=== PATIENT | male | born 1955 | race Caucasian/White ===

== ENCOUNTER 2018-01-17 07:50 | Day surgery (SDC) | payer MEDICAID ==
[2018-01-17] MEDS ORDERED: Sodium Chloride 0.9% 1,000 ML IV SCH (08:30)
[2018-01-17] MEDS ORDERED: Midazolam 1 MG/ML 2 ML SDV ONE (09:01)
[2018-01-17] MEDS ORDERED: fentaNYL 100 MCG/2 ML SDV ONE (09:01)
[2018-01-17] MEDS ORDERED: Propofol 200 MG/20 ML SDV ONE ×2 (09:01→09:54)
[2018-01-17 11:52] VITALS: BP 118/74
--- NOTE | 2018-01-17 15:27 | OR ---
DATE OF PROCEDURE: 01/17/2018 PROCEDURE: 1. EGD. 2. Colonoscopy. FINDINGS: 1. Erosive esophagitis. 2. Inflammation consistent with reflux disease. 3. Hiatal hernia. 4. Descending colon polyp, approximately 3-4 mm, completely removed using cold biopsy forceps. 5. Diverticulosis, moderate, mostly concentrated at the sigmoid colon. COMPLICATIONS: None. ROTATING EQUIPMENT SPECIALIST: None. PREOPERATIVE DIAGNOSIS: Epigastric pain and screening colonoscopy. POSTOPERATIVE DIAGNOSIS: Epigastric pain and screening colonoscopy. CONSENT: Risks, benefits, alternatives, and limitations including, but not limited to infection, bleeding, and perforation were explained, and the patient wished to proceed. PROCEDURE IN DETAIL: The patient was placed in the left lateral decubitus position. The EGD scope was introduced and advanced atraumatically to the 2nd part of the duodenum. On retroflexion, there were no gastric ulcerations or ulcerations in the duodenum. At the GE junction, there was a hiatal hernia, probably moderate in size. The GE junction itself showed areas of ulceration, most consistent with healing esophageal ulceration. This was biopsied in proximity in all 4 quadrants. The midesophagus was normal. A digital rectal exam was performed next. The scope was introduced, and the patient had significant amount of tortuosity noted in his colon. Diverticulosis described as moderate and concentrated in the sigmoid colon. No evidence of diverticulitis or active bleeding. As the scope was advanced to the ileocecal valve, a photo was taken. As the scope was brought back through, a very small polyp in the descending colon was identified and completely removed. No other abnormalities noted. The prep was marginal. On retroflex, there were no abnormalities. The patient tolerated the procedure well. Gio Purvis MD /[id number]
== END 2018-01-17 11:45 | disposition home or self-care (01) ==
LOC: JP.SDS 07:50
PROVIDERS: ATTEND Surgery
DX: Z12.11 Encounter for screening for malignant neoplasm of colon (principal); K63.5 Polyp of colon; K57.30 Diverticulosis of large intestine without perforation or abscess without bleeding; K22.10 Ulcer of esophagus without bleeding; K44.9 Diaphragmatic hernia without obstruction or gangrene; I25.10 Atherosclerotic heart disease of native coronary artery without angina pectoris; Z87.891 Personal history of nicotine dependence; Z88.2 Allergy status to sulfonamides
CPT/HCPCS: 43239; 45380; J2250; J2704; J3010; J7030; 88305

== ENCOUNTER → 2021-11-30 | Day surgery (SDC) | payer MEDICARE, BC ==
[~2021-11-30] MED LIST: Bupivacaine 0.5% 30 ML SDV ONE; Dexamethasone 4 MG/ML SDV ONE; Glycopyrrolate 0.2 MG/ML 5 ML MDV ONE; Lactated Ringers 1,000 ML IV SCH; Neostigmine Methylsulfate 1 MG/ML 5 ML Syringe ONE; Ondansetron 4 MG/2 ML SDV ONE; Propofol 200 MG/20 ML SDV ONE; Rocuronium 50 MG/5 ML Vial ONE; Succinylcholine 200 MG/10 ML MDV ONE; ceFAZolin 1 GM in Premix Bag 1 BAG IV ONE; ceFAZolin 1 GM in Sodium Chloride 0.9% 50 ML IV ONE; fentaNYL 100 MCG/2 ML SDV ONE; fentaNYL 250 MCG/5 ML SDV ONE
[2021-11-30 20:26] VITALS: BP 109/81; PULSE 75
== END ==
LOC: JP.ED 15:46 → JP.SDS 18:00
PROVIDERS: ATTEND Specialist
DX: S82.842A Displaced bimalleolar fracture of left lower leg, initial encounter for closed fracture (principal); S82.402A Unspecified fracture of shaft of left fibula, initial encounter for closed fracture; S82.52XA Displaced fracture of medial malleolus of left tibia, initial encounter for closed fracture; I10 Essential (primary) hypertension; E78.00 Pure hypercholesterolemia, unspecified; K21.9 Gastro-esophageal reflux disease without esophagitis; M19.90 Unspecified osteoarthritis, unspecified site; I25.2 Old myocardial infarction; Z98.890 Other specified postprocedural states; Z88.2 Allergy status to sulfonamides; Z95.5 Presence of coronary angioplasty implant and graft; Z87.891 Personal history of nicotine dependence; Z79.810 Long term (current) use of selective estrogen receptor modulators (SERMs); Z79.83 Long term (current) use of bisphosphonates; Z79.899 Other long term (current) drug therapy; X58.XXXA Exposure to other specified factors, initial encounter
CPT/HCPCS: 27814; 36415; 73610; 76000; 80048; 85027; 96365; 99283; C1713; J0330; J0690; J1100; J2405; J2704; J3010; J3490; J7120; U0002; 99281; J2710

== ENCOUNTER 2021-12-06 07:55 | Emergency (ER) | payer MEDICARE, BC ==
[2021-12-06 08:12] VITALS: BP 111/78; PULSE 119
== END 2021-12-06 10:08 | disposition home or self-care (01) ==
LOC: JP.ED 07:55
DX: S82.842A Displaced bimalleolar fracture of left lower leg, initial encounter for closed fracture (principal); K59.03 Drug induced constipation; T50.905A Adverse effect of unspecified drugs, medicaments and biological substances, initial encounter; F41.9 Anxiety disorder, unspecified; K21.9 Gastro-esophageal reflux disease without esophagitis; E78.00 Pure hypercholesterolemia, unspecified; I10 Essential (primary) hypertension; I25.2 Old myocardial infarction; Z95.5 Presence of coronary angioplasty implant and graft; Z79.899 Other long term (current) drug therapy
CPT/HCPCS: 99283

== ENCOUNTER 2022-07-27 07:46 | Day surgery (SDC) | payer MEDICARE, BC ==
[~2022-07-27 07:46] MED LIST changes: -Bupivacaine 0.5% 30 ML SDV ONE; -Dexamethasone 4 MG/ML SDV ONE; -Glycopyrrolate 0.2 MG/ML 5 ML MDV ONE; -Lactated Ringers 1,000 ML IV SCH; -Neostigmine Methylsulfate 1 MG/ML 5 ML Syringe ONE; -Ondansetron 4 MG/2 ML SDV ONE; -Rocuronium 50 MG/5 ML Vial ONE; -Succinylcholine 200 MG/10 ML MDV ONE; -ceFAZolin 1 GM in Premix Bag 1 BAG IV ONE; -ceFAZolin 1 GM in Sodium Chloride 0.9% 50 ML IV ONE; -fentaNYL 250 MCG/5 ML SDV ONE
[2022-07-27] MEDS ORDERED: Sodium Chloride 0.9% 1,000 ML IV SCH (08:30)
[2022-07-27 11:14] VITALS: BP 130/85; PULSE 54
== END 2022-07-27 11:18 | disposition home or self-care (01) ==
LOC: JP.SDS 07:46
PROVIDERS: ATTEND Surgery
DX: K22.70 Barrett's esophagus without dysplasia (principal); K31.A0 Gastric intestinal metaplasia, unspecified; K44.9 Diaphragmatic hernia without obstruction or gangrene; K22.89 Other specified disease of esophagus; K21.9 Gastro-esophageal reflux disease without esophagitis; I25.10 Atherosclerotic heart disease of native coronary artery without angina pectoris; Z95.818 Presence of other cardiac implants and grafts; Z88.2 Allergy status to sulfonamides
CPT/HCPCS: 43239; 88305; J2704; J3010; J7030

== ENCOUNTER 2022-11-20 06:22 | Day surgery (SDC) | payer MEDICARE, BC ==
[2022-11-20 06:44] LABS: HEMATOCRIT 45.1 % (38.4-49.7); HEMOGLOBIN 15.3 g/dL (12.9-16.9); MEAN CORPUSCULAR HEMOGLOBIN 30.5 pg (31.6-35.5); MEAN CORPUSCULAR HGB CONC 33.9 g/dL (31.6-35.5); RED BLOOD CELL COUNT 5.01 M/uL (4.14-5.76); WHITE BLOOD CELL COUNT,WBC 4.5 K/uL (3.2-11.0)
[2022-11-20] MEDS ORDERED: Lidocaine 0.5% 50 ML SDV ONE (06:47)
[2022-11-20] MEDS ORDERED: Bupivacaine 0.5% 30 ML SDV ONE (06:47)
[2022-11-20] MEDS ORDERED: Nozin Nasal Sanitizer NASBOTH ONE (06:57)
[2022-11-20] MEDS ORDERED: Lactated Ringers 1,000 ML IV SCH (07:00)
[2022-11-20 07:04] LABS: ALANINE AMINOTRANSFERASE,ALT 41 U/L (12-78); ALBUMIN 3.5 g/dL (3.4-5.0); ALKALINE PHOSPHATASE 58 U/L (46-116); ANION GAP 5.8 mmol/L (5.0-14.0); ASPARTATE AMNIOTRANSFERASE,AST 41 U/L (15-37); BILIRUBIN TOTAL 0.3 mg/dL (0.2-1.0); BLOOD UREA NITROGEN,BUN 23 mg/dL (7-18); CALCIUM 8.7 mg/dL (8.5-10.1); CARBON DIOXIDE,CO2 30 mmol/L (21-32); CHLORIDE,CL 105 mmol/L (100-108); CREATININE 0.9 mg/dL (0.8-1.3); EST CRCL DRUG DOSING (CG) 84.83 mL/min; ESTIMATED GFR 94 mL/min (>60); GLUCOSE RANDOM 101 mg/dL (74-106); POTASSIUM,K 4.1 mmol/L (3.6-5.2); PROTEIN TOTAL,TP 6.9 g/dL (6.4-8.2); SODIUM,NA 141 mmol/L (140-148)
[2022-11-20] MEDS ORDERED: ceFAZolin 1 GM in Premix Bag 1 BAG IV ONE (07:30)
[2022-11-20] MEDS ORDERED: ceFAZolin 1 GM in Sodium Chloride 0.9% 50 ML IV ONE (07:30)
[2022-11-20] MEDS ORDERED: Propofol 200 MG/20 ML SDV ONE (07:31)
[2022-11-20] MEDS ORDERED: Glycopyrrolate 0.2 MG/ML 5 ML MDV ONE (07:53)
[2022-11-20] MEDS ORDERED: Neostigmine Methylsulfate 1 MG/ML 5 ML Syringe ONE (07:53)
[2022-11-20] MEDS ORDERED: Ondansetron 4 MG/2 ML SDV ONE (07:53)
[2022-11-20] MEDS ORDERED: Dexamethasone 4 MG/ML SDV ONE (07:53)
[2022-11-20] MEDS ORDERED: fentaNYL 250 MCG/5 ML SDV ONE (07:53)
[2022-11-20] MEDS ORDERED: Acetaminophen/HYDROcodone 325-5 MG Tab PO ONE (09:42)
[2022-11-20 10:29] VITALS: BP 116/73; PULSE 48
== END 2022-11-20 10:34 | disposition home or self-care (01) ==
LOC: JP.SDS 06:22
PROVIDERS: ATTEND Specialist
DX: T84.84XA Pain due to internal orthopedic prosthetic devices, implants and grafts, initial encounter (principal); K21.9 Gastro-esophageal reflux disease without esophagitis; I10 Essential (primary) hypertension; Z88.2 Allergy status to sulfonamides; I25.10 Atherosclerotic heart disease of native coronary artery without angina pectoris; I25.2 Old myocardial infarction; Z95.818 Presence of other cardiac implants and grafts
CPT/HCPCS: 20680; 36415; 80053; 85027; A9270; J0690; J1100; J2405; J2704; J2710; J3010; J3490; J7120